=== PATIENT | male | born 1950 | race African-American/Black ===

== ENCOUNTER 2019-01-15 13:54 | Emergency (ER) | payer OTHER ==
[~2019-01-15] VITALS: Ht 175.3 cm; Wt 116.1 kg
[2019-01-15 14:00] VITALS: BP 177/66
--- NOTE | 2019-01-15 14:04 | NUR ---
pt biba to bed 3 at this time
--- NOTE | 2019-01-15 14:06 | NUR ---
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 DIAPHORETIC ON ARRIVAL TO FACILITY. RECV'D 4 MG ODT ZOFRAN AND 50 MCG FENTANYL [employer]. HX---DM, TRIPLE BYPASS ,KIDNEY STONES. PATIENT STATES PAIN OF 10/10 AT THIS TIME. PATIENT POSITIONED FOR COMFORT; HOB ELEVATED; BEDRAILS UP X2; BED DOWN. ER MD MADE AWARE OF PT STATUS.
[2019-01-15] MEDS ORDERED: KETOROLAC 30 MG/ML VIAL IVP ONE (14:10)
[2019-01-15] MEDS ORDERED: ONDANSETRON 4 MG/2 ML VIAL IVP ONE (14:10)
--- NOTE | 2019-01-15 14:15 | NUR ---
DR JIMENEZ AT BEDSIDE EVALUATING PT
--- NOTE | 2019-01-15 14:45 | NUR ---
Dr. Olivares made aware of rhythm change to sinus bradycardia, Alejo MILLER made aware.
--- NOTE | 2019-01-15 14:50 | NUR ---
LAB AT BEDSIDE Addendum: 01/15/19 at 1516 by [facility] AT BEDSIDE.Patient appears to be SLEEPING comfortably in bed. BP 153/70. Respirations even and unlabored. PULSE OX 100% WITH OXYGEN CN 2 L/M
[2019-01-15 15:16] LABS: APPEARANCE,URINE CLEAR (CLEAR); BILIRUBIN,URINE NEGATIVE (NEGATIVE); BLOOD, URINE 3+ (NEGATIVE); COLOR,URINE YELLOW (YELLOW); LEUKOCYTE ESTERASE ,URINE NEGATIVE (NEGATIVE); NITRITE, URINE NEGATIVE (NEGATIVE); UGLUCOSE NEGATIVE (NEGATIVE)
[2019-01-15 15:18] LABS: BASOPHILS # (AUTO) 0.1 K/uL (0.00-0.22); BASOPHILS % (AUTO) 0.4 % (0.0-2.0); EOSINOPHILS % (AUTO) 0.1 % (0.0-4.0); HEMATOCRIT 45.2 % (36-52); HEMOGLOBIN 14.7 g/dL (12.0-18.0); LYMPHOCYTES # (AUTO) 1.2 K/uL (2.0-11.5); LYMPHOCYTES % (AUTO) 7.6 % (20.5-51.1); MEAN CORPUSCULAR HEMOGLOBIN 29 pg (27-31); MEAN CORPUSCULAR HGB CONC 33 g/dL (33-37); MEAN CORPUSCULAR VOLUME 87.6 fL (80-94); MONOCYTES # (AUTO) 0.5 K/uL (0.8-1.0); MONOCYTES % (AUTO) 3.1 % (1.7-9.3); NEUTROPHILS # (AUTO) 13.9 K/uL (1.8-7.7); NEUTROPHILS % (AUTO) 88.8 % (42.2-75.2); PLATELET COUNT (AUTO) 203 K/uL (140-450); RED BLOOD CELL COUNT(AUTO) 5.15 MIL/uL (4.20-6.10); WHITE BLOOD COUNT (AUTO) 15.6 K/uL (4.8-10.8)
[2019-01-15 15:30] LABS: ANION GAP 13.9 (8-16); CARBON DIOXIDE 25.2 mmol/L (21-32); CREATININE 1.5 mg/dL (0.7-1.3); POTASSIUM 4.1 mmol/L (3.5-5.1)
[2019-01-15 15:37] LABS: ALBUMIN 3.6 g/dL (3.4-5.0); TOTAL BILIRUBIN 0.6 mg/dL (0.0-1.0)
[2019-01-15 15:39] LABS: WBC,URINE 0-5 /HPF (0-5)
[2019-01-15 15:40] LABS: RBC,URINE >20 (MANY) /HPF (0-5)
[2019-01-15 16:42] VITALS: BP 133/68
--- NOTE | 2019-01-15 16:42 | NUR ---
Patient discharged with v/s stable. Written and verbal after care instructions given and explained. Patient alert, oriented and verbalized understanding of instructions. Ambulatory with steady gait. All questions addressed prior to discharge. ID band removed. Patient advised to follow up with PMD. Rx of ZOFRAN, NORCO & NAPROSYN given. Patient educated on indication of medication including possible reaction and side effects. Opportunity to ask questions provided and answered.
== END 2019-01-15 16:42 | disposition home or self-care (01) ==
LOC: MED 13:54
DX: N20.1 Calculus of ureter (principal); E11.9 Type 2 diabetes mellitus without complications
CPT/HCPCS: 36415; 80053; 81001; 85025; 96374; 96375; 99283; J1885; J2405